=== PATIENT | female | born 1960 | race African-American/Black ===

== ENCOUNTER 2017-02-14 10:06 | Emergency (ER) | payer SELFPAY ==
[2017-02-14 10:18] VITALS: BP 137/61; BMI 24.4
[2017-02-14] MEDS ORDERED: TORADOL TAB PO ONE ×2 (10:59→11:03)
--- NOTE | 2017-02-14 10:59 | DR.GENAD ---
HPI - PCP Primary Care Physician: NFJordyn - HPI Comment HPI Comment: HAPPEN YESTERDAY. FELL DOWN THE STEP AND THEN FELL DOWN SAME STEP AGAIN. - Complaint/Symptoms Chief Complaint Doctors Comments: PATIENT INJURED RT FOOT TWICE AND HAVING PAIN AND DIFFICULTY BEARING WEIGHT. Chief Complaint:: PATIENT HAD TINGLING IN HER RIGHT LEG AND FOOT YESTERDAY. PATIENT WENT TO STEP DOWN ON HER STEPS AND FELL DOWN. WHEN SHE WOKE UP THIS MORNING AND COULD NOT GET OUT OF THE BED. - Nurses notes reviewed Nurses Notes Review: Yes - Source History Provided: Patient - Mode of Arrival Mode of Arrival: Ambulatory - Timing Onset of Chief Complaint: 02/13/17 Came on: Suddenly - Duration Duration: Constant Duration: Days - Severity Severity: Moderate PMH - PMH Past Medical History: Yes Past Medical History: Arthritis, Depression, Migraines, Hypertension, Schizophrenia Past Surgical History: Yes Surgical History: , Other - Family History History of Family Medical Conditions: Yes Family Medical History: Diabetes Mellitus, Hypertension - Social History Does patient currently use any type of tobacco product: Yes Have you used tobacco products in the last 12 months: Yes Type of Tobacco Use: Cigarettes Does any household member use tobacco: No Alcohol Use: None Do you use any recreational Drugs:: No Lives With: Family Lives Where: Home - infectious screening In the last 2 months have you had wt loss of >10#?: NO Have you had fever, night sweats or hemotysis?: No Have you traveled outside the country in the last 6 months?: No Isolation: Standard ROS - Review of Systems Constitutional: No Symptoms Reported Eyes: No Symptoms Reported ENTM: No Symptoms Reported Respiratoy: No Symptoms Reported Cardiovascular: No Symptoms Reported Gastrointestinal/Abdominal: No Symptoms Reported Genitourinary: No Symptoms Reported Neurological: No Symptoms Reported Musculoskeletal: Right, Foot Integumentary: Change in Color Hematologic/Lymphatic: No Symptoms Reported Endocrine: No Symptoms Reported All Other Systems: Reviewed and Negative PE - Vital Signs Vitals: Temperature 97.5 F Pulse Rate 105 Respiratory Rate 20 Blood Pressure 137/61 O2 Sat by Pulse Oximetry 98 - General Limitations: No Limitations General Appearance: Alert - Head Head Exam: Normal Inspection - Eyes Eye exam: Normal Appearance - ENT ENT Exam: Normal External Ear Exam External Ear Exam: Normal External Inspection TM/Canal Exam: Bilateral Normal Nose Exam: Normal Nose Exam Mouth Exam: Normal Inspection Throat Exam: Normal Inspection - Neck Neck Exam: Normal Inspection - Chest Chest Inspection: Normal Inspection - Respiratory Respiratory Exam: Normal Lung Sounds Bilat Respiratory Exam: Bilateral Clear to Auscultation - Cardiovascular Cardiovascular Exam: Regular Rate, Normal Rhythm, Normal Heart Sounds - Abdominal Exam Abdominal Exam: Normal Bowel Sounds, Soft. negative: Tenderness - Extremities Extremities Exam: Tenderness (RT FOOT) - Back Back Exam: Normal Inspection - Neurologic Neurological Exam: Alert, Oriented X3 - Psychiatric Psychiatric Exam: Anxious - Skin Skin Exam: Erythema MDM - Differential Diagnosis Differential Diagnosis: FRACTURE, SPRAIN, CONTUSION, STRAIN Course - Treatment Treatment: SEE ORDERS. POST OP SHOE APPLIED IN ED. PRESCRIPTION FOR CRUTCHES GIVEN TO PATIENT. - Education/Counseling Education/Counseling: Patient, Education Educated On: Diagnosis, Needs for Follow Up ROR - XRAY XRAY Interpreted by: Self XRAY Findings: DISCUSS NORMAL XRAY WITH PAIENT. REPORT WITH FRACTURE DISCUSS WITH PATIENT - Diagnosis Discharge Problem: Fracture, metacarpal Qualifiers: Encounter type: initial encounter Metacarpal bone: fifth Fracture type: closed Metacarpal location: other portion of metacarpal Fracture alignment: nondisplaced Laterality: right Qualified Code(s): S62.396A - Other fracture of fifth metacarpal bone, right hand, initial encounter for closed fracture - Discharge Plan Disposition: 01 HOME, SELF-CARE Condition: Stable Prescriptions: Acetaminophen with Codeine [Tylenol/Codeine #3 300-30 mg] 1 tab PO Q4-6H PRN # 15 tab PRN Reason: Pain Ibuprofen [MOTRIN TAB 600 MG *] 600 mg PO TID PRN #20 tab PRN Reason: Pain/Inflammation - Follow ups/Referrals Follow ups/Referrals: NFD,None [Primary Care Provider] - 3 days Mik Loja [STAFF PHYSICIAN] - 3 days - Instructions Instructions: Intermetacarpal Sprain Additional Instructions: RETURN TO ED IF WORSE.
--- NOTE | 2017-02-14 14:03 | RAD ---
HISTORY: Fall, pain Study: Three-view right foot Comparison: None Findings: There is a subtle lucency through the base of the 5th metatarsal which is best seen on the lateral vi ew. There does appear to resume overlying soft tissue swelling and is concerning for nondisplaced fra cture. Please correlate . No other definite fractures are identified. The visualized portions of the talus and calcaneus are unremarkable. IMPRESSION: 1. Lucency through the base of the 5th metatarsal as above with overlying soft tissue swelling eliz rning for nondisplaced fracture. Clinical correlation for point tenderness over this region is courtney osman. Reported By:
== END 2017-02-14 12:11 | disposition home or self-care (01) ==
LOC: ER 10:21
DX: S92.351A Displaced fracture of fifth metatarsal bone, right foot, initial encounter for closed fracture (principal); W10.9XXA Fall (on) (from) unspecified stairs and steps, initial encounter; Y92.9 Unspecified place or not applicable
CPT/HCPCS: 73630; 99282; 99283

== ENCOUNTER 2017-04-20 11:06 | Emergency (ER) | payer SELFPAY ==
[2017-04-20 11:11] VITALS: BP 180/83; BMI 25.2
--- NOTE | 2017-04-20 11:49 | DR.GENAD ---
HPI - PCP Primary Care Physician: ELIZABETH - Complaint/Symptoms Chief Complaint:: PT. C/O BILATERAL WRIST PAIN. PT. STATES SHE HAS CARPAL TUNNEL AND HAS HAD PROBLEMS FOR 5-6 YEARS. PT. ALSO C/O CHRONIC LEFT KNEE PAIN. PT. STATES SHE HAS AN INTERNAL HEMORRHOID THAT HAS BEEN BLEEDING A LOT. - Nurses notes reviewed Nurses Notes Review: Yes - Source History Provided: Patient - Mode of Arrival Mode of Arrival: Ambulatory - Timing Onset of Chief Complaint: 04/19/17 Came on: Suddenly - Duration Duration: Since Onset Duration: Minutes - Severity Severity: None PMH - PMH Past Medical History: Yes Past Medical History: Arthritis, Depression, Migraines, Hypertension, Schizophrenia Past Surgical History: Yes Surgical History: , Other - Family History History of Family Medical Conditions: Yes Family Medical History: Diabetes Mellitus, Hypertension - Social History Does patient currently use any type of tobacco product: Yes Have you used tobacco products in the last 12 months: Yes Type of Tobacco Use: Cigarettes Does any household member use tobacco: No Alcohol Use: None Do you use any recreational Drugs:: No Lives With: Family Lives Where: Home - infectious screening In the last 2 months have you had wt loss of >10#?: NO Have you had fever, night sweats or hemotysis?: No Have you traveled outside the country in the last 6 months?: No Isolation: Standard ROS - Review of Systems Constitutional: No Symptoms Reported Eyes: No Symptoms Reported ENTM: No Symptoms Reported Respiratoy: No Symptoms Reported Cardiovascular: No Symptoms Reported Gastrointestinal/Abdominal: No Symptoms Reported Genitourinary: No Symptoms Reported Neurological: No Symptoms Reported Musculoskeletal: No Symptoms Reported Integumentary: No Symptoms Reported Hematologic/Lymphatic: No Symptoms Reported Endocrine: No Symptoms Reported All Other Systems: Reviewed and Negative PE - Vital Signs Vitals: Temperature 97.8 F Pulse Rate 90 Respiratory Rate 18 Blood Pressure 180/83 O2 Sat by Pulse Oximetry 99 - General Limitations: No Limitations General Appearance: Alert - Head Head Exam: Normal Inspection - Eyes Eye exam: Normal Appearance - ENT ENT Exam: Normal External Ear Exam External Ear Exam: Normal External Inspection TM/Canal Exam: Bilateral Normal Mouth Exam: Normal Inspection Throat Exam: Normal Inspection - Neck Neck Exam: Trachea Midline - Chest Chest Inspection: Symmetric Chest Wall Rise - Respiratory Respiratory Exam: Normal Lung Sounds Bilat Respiratory Exam: Bilateral Clear to Auscultation - Cardiovascular Cardiovascular Exam: Regular Rate, Normal Rhythm, Normal Heart Sounds - Abdominal Exam Abdominal Exam: Normal Bowel Sounds, Soft. negative: Tenderness - Extremities Extremities Exam: Normal Inspection - Back Back Exam: Normal Inspection - Neurologic Neurological Exam: Alert, Oriented X3 - Psychiatric Psychiatric Exam: Normal Affect, Normal Mood - Skin Skin Exam: Normal Color - Discharge Plan Disposition: HOME, SELF-CARE Condition: Stable Prescriptions: Ketorolac Tromethamine [Toradol Tab] 10 mg PO Q8H PRN #15 tab PRN Reason: Pain Lisinopril [ZESTRIL *] 10 mg PO DAILY #30 tab - Follow ups/Referrals Follow ups/Referrals: NFD,None [Primary Care Provider] - 3 days Breana JOHNSON [STAFF PHYSICIAN] - 04/22/17 - Instructions Instructions: Osteoarthritis, Neuropathic Pain, Hypertension, [id number] Additional Instructions: RETURN TO ED IF WORSE.
== END 2017-04-20 12:12 | disposition home or self-care (01) ==
LOC: ER 11:14
DX: M19.90 Unspecified osteoarthritis, unspecified site (principal); M79.2 Neuralgia and neuritis, unspecified; I10 Essential (primary) hypertension
CPT/HCPCS: 99281; 99282

== ENCOUNTER 2017-06-12 11:40 | Emergency (ER) | payer SELFPAY ==
[2017-06-12 11:46] VITALS: BP 141/79; BMI 25.2
--- NOTE | 2017-06-12 13:14 | DR.GENAD ---
HPI - PCP Primary Care Physician: griffin - HPI Comment HPI Comment: HISTORY BELOW. - Complaint/Symptoms Chief Complaint Doctors Comments: HEMORRHOIDS THAT FLARE UP ON AND OFF FOR FEW YEARS. STARTED HURTING AND BLEEDING 4 DAYS AGO. WORSE TODAY. Chief Complaint:: pt stated she has had hemarroids for 4 years and they have been bleeding for 4 years. today she decided to come to the er to be seen for them cause she didnt sleep last night Self Treatment fo Chief Complaint: none - Nurses notes reviewed Nurses Notes Review: Yes - Source History Provided: Patient - Mode of Arrival Mode of Arrival: Ambulatory - Timing Onset of Chief Complaint: 06/01/13 Came on: Suddenly - Duration Duration: Constant Duration: Days - Severity Severity: Moderate PMH - PMH Past Medical History: Yes Past Medical History: Arthritis, Depression, Migraines, Hypertension, Schizophrenia Past Surgical History: Yes Surgical History: , Other - Family History History of Family Medical Conditions: Yes Family Medical History: Diabetes Mellitus, Hypertension - Social History Does patient currently use any type of tobacco product: Yes Have you used tobacco products in the last 12 months: Yes Type of Tobacco Use: Cigarettes How many years tobacco product used: 20 Does any household member use tobacco: No Alcohol Use: None Do you use any recreational Drugs:: No Lives With: Family Lives Where: Home - infectious screening In the last 2 months have you had wt loss of >10#?: NO Have you had fever, night sweats or hemotysis?: No Have you traveled outside the country in the last 6 months?: No Isolation: Standard ROS - Review of Systems Constitutional: No Symptoms Reported Eyes: No Symptoms Reported ENTM: No Symptoms Reported Respiratoy: No Symptoms Reported Cardiovascular: No Symptoms Reported Gastrointestinal/Abdominal: Other (RECTAL PAIN AND BLEEDING.) Genitourinary: No Symptoms Reported Neurological: No Symptoms Reported Musculoskeletal: No Symptoms Reported Integumentary: No Symptoms Reported Hematologic/Lymphatic: No Symptoms Reported Endocrine: No Symptoms Reported All Other Systems: Reviewed and Negative PE - Vital Signs Vitals: Temperature 98.3 F Pulse Rate 89 Respiratory Rate 16 Blood Pressure 141/79 O2 Sat by Pulse Oximetry 100 - General Limitations: No Limitations General Appearance: Alert - Head Head Exam: Normal Inspection - Eyes Eye exam: Normal Appearance - ENT ENT Exam: Normal External Ear Exam External Ear Exam: Normal External Inspection TM/Canal Exam: Bilateral Normal Nose Exam: Normal Nose Exam Mouth Exam: Normal Inspection Throat Exam: Normal Inspection - Neck Neck Exam: Normal Inspection - Chest Chest Inspection: Symmetric Chest Wall Rise - Respiratory Respiratory Exam: Normal Lung Sounds Bilat Respiratory Exam: Bilateral Clear to Auscultation - Cardiovascular Cardiovascular Exam: Regular Rate, Normal Rhythm, Normal Heart Sounds - Abdominal Exam Abdominal Exam: Normal Bowel Sounds, Other (HEMORRHOID SIZE OF LARGE PEANUT THAT IS INFLAME AND TENDER. NO ACTIVE BLEEDING.) - Extremities Extremities Exam: Normal Inspection - Back Back Exam: Normal Inspection - Neurologic Neurological Exam: Alert, Oriented X3 - Psychiatric Psychiatric Exam: Normal Affect, Normal Mood - Skin Skin Exam: Normal Color MDM - Differential Diagnosis Differential Diagnosis: HEMORRHOID, RECTAL PAIN, RECTAL BLEEDING. Course - Treatment Treatment: SEE ORDERS. - Education/Counseling Education/Counseling: Patient, Education Educated On: Diagnosis, Needs for Follow Up - Diagnosis Discharge Problem: Hemorrhoids Qualifiers: Hemorrhoid type: unspecified Qualified Code(s): K64.9 - Unspecified hemorrhoids - Discharge Plan Disposition: 01 HOME, SELF-CARE Condition: Stable Prescriptions: Acetaminophen with Codeine [Tylenol/Codeine #3 300-30 mg] 1 tab PO Q4-6H PRN # 15 tab PRN Reason: Pain Hydrocortisone Supp 25 mg [Anucort-Hc Supp] 25 mg RECTAL BID PRN #24 supp PRN Reason: Hemmorhoid Itching/Discomfort - Follow ups/Referrals Follow ups/Referrals: NFD,None [Primary Care Provider] - 3 days ROXANNA ARIZA [STAFF PHYSICIAN] - 3 days CHAKA REES [STAFF PHYSICIAN] - 3 days - Instructions Instructions: Hemorrhoids, [id number] Additional Instructions: RETURN TO ED IF WORSE.
== END 2017-06-12 13:29 | disposition home or self-care (01) ==
LOC: ER 12:00
DX: K44.9 Diaphragmatic hernia without obstruction or gangrene (principal)
CPT/HCPCS: 99281